=== PATIENT | male | born 1955 | race Caucasian/White ===

== ENCOUNTER 2020-10-21 23:03 | Emergency (ER) | payer MEDICARE, OTHER ==
[~2020-10-21] VITALS: Ht 177.8 cm; Wt 79.4 kg
--- NOTE | 2020-10-21 23:06 | NUR ---
DR BAUTISTA AT [facility] SIDE
[2020-10-21] MEDS ORDERED: ACETAMINOPHEN ES 500 MG TABLET ONE (23:13)
--- NOTE | 2020-10-21 23:23 | NUR ---
[employer] AT BED SIDE
[2020-10-21] MEDS ORDERED: ACETAMINOPHEN 325 MG TABLET PO ONE (23:30)
--- NOTE | 2020-10-22 | NUR ---
PT IS MEDICALLY STABLE FOR D/C. Patient discharged to home in stable condition. Written and verbal after care instructions given. Patient verbalizes understanding of instruction.
[2020-10-22 00:34] VITALS: BP 156/59
== END 2020-10-22 | disposition home or self-care (01) ==
LOC: ER 23:04
DX: U07.1 COVID-19 (principal); N40.0 Benign prostatic hyperplasia without lower urinary tract symptoms; Z60.2 Problems related to living alone
CPT/HCPCS: 71045-TC

== ENCOUNTER 2024-06-21 05:28 | Emergency (ER) | payer MEDICARE, OTHER ==
[~2024-06-21] VITALS: Ht 172.7 cm; Wt 81.6 kg
[2024-06-21 06:19] LABS: APPEARANCE,URINE CLEAR (CLEAR); BILIRUBIN,URINE NEGATIVE (NEGATIVE); BLOOD, URINE 3+ Ery/uL (NEGATIVE); COLOR,URINE YELLOW (YELLOW); KETONES,URINE NEGATIVE (NEGATIVE); LEUKOCYTE ESTERASE ,URINE NEGATIVE (NEGATIVE); NITRITE, URINE NEGATIVE (NEGATIVE); PH,URINE 5.5 (5.0-8.0); PROTEIN,URINE NEGATIVE (NEGATIVE); UGLUCOSE NEGATIVE (NEGATIVE); UROBILINOGEN,URINE 0.2 EU/dL (0.2)
[2024-06-21 06:20] LABS: ADD URINE CULTURE NO; BACTERIA,URINE Rare /HPF (None Seen); SQUAMOUS EPITHELIAL CELL,UR Rare /HPF (None Seen); WBC,URINE 0-2 /HPF (0-3)
[2024-06-21 07:08] VITALS: BP 125/87; TEMP 98.4; O2SAT 98
== END 2024-06-21 07:10 | disposition home or self-care (01) ==
LOC: ER 05:30
DX: R33.9 Retention of urine, unspecified (principal); Z87.430 Personal history of prostatic dysplasia; Z87.442 Personal history of urinary calculi; Z60.2 Problems related to living alone
CPT/HCPCS: 81001; 87086-TC